=== PATIENT | female | born 1945 | race Caucasian/White ===

== ENCOUNTER 2025-01-03 15:05 | Emergency (ER) | payer MEDICARE, SELFPAY ==
--- OUTSIDE RECORDS SUMMARY | 2025-01-03 15:13 | XMS_ITS | Clinical Summary ---
Author Organization [facility] Address [address] [place] [address] Care Team Providers Care Rerecording Mixer Name Role Phone Royal Ocasio DO Primary Care Provider [phone] Allergies Active Allergy Reactions Criticality Noted Date Comments Acetaminophen-Codeine Vomiting 11/29/2015 Meperidine Diarrhea,Nausea and Vomiting 009 Medications losartan 100 MG tabletIndications :bp Take 1 tablet (100 mg total) by mouth daily. 90 tablet 03/24/20 19 Active busPIRone 5 MG tabletIndications :Anxiety [The details of the medication are not available because there are pending changes by a home health clinician.] 180 tablet 03/24/20 19 Active Additional Information Patient not taking.Reason: Roland Houston, Reported on 05/25/2024 SERTRALINE 100 MG tabletIndications :mood TAKE 1 TABLET BY MOUTH DAILY 90 tablet 05/12/20 19 Active SIMVASTATIN 10 MG tabletIndications :cholesterol TAKE 1 TABLET BY MOUTH DAILY 90 tablet 05/12/20 19 Active magnesium oxide 400 MG tabletIndications :Hypomagnesemia [The details of the medication are not available because there are pending changes by a home health clinician.] 30 tablet 2 09/26/19 20 Active Additional Information Patient not taking.Reason: Roland Houston, Reported on 05/26/2024 LEVOTHYROXINE 75 MCG tabletIndications :thyroid replacement TAKE 1 TABLET BY MOUTH DAILY 90 tablet 11/21/19 20 Active LANTUS SOLOSTAR 100 UNIT/ML injection (PEN)Indications: dm [The details of the medication are not available because there are pending changes by a home health clinician.] 45 mL 3 05/09/20 20 Active Additional Information Patient taking differently: INJECT SUBCUTANEOUSLY 38 UNITS DAILY., Reported on 05/26/2024 metFORMIN 1000 MG tabletIndications :Uncontrolled type 2 diabetes mellitus with hyperglycemia ([facility]) [The details of the medication are not available because there are pending changes by a home health clinician.] 180 tablet 10/19/19 21 Active Additional Information Patient not taking.Reason: Physican Directed, Reported on 05/26/2024 aspirin 81 MG chewable tabletIndications :heart Adaptimmune Chew 1 tablet (81 mg total) by mouth daily. Indications: heart health 07/26/19 22 Active metFORMIN (GLUCOPHAGE) 850 MG tabletIndications :dm Take 850 mg by mouth 2 (two) times daily with meals. Indications: dm 05/25/20 24 Active miconazole (ANTIFUNGAL) 2 % powderIndications :rash Apply 1 Application topically as needed for Itching. Indications: rash 05/26/20 24 Active sertraline (ZOLOFT) 25 MG tabletIndications :ood Take 25 mg by mouth daily. Indications: ood 06/07/20 24 Active Naproxen Sodium (ALEVE) 220 MG CapIndications:pa in Take 1 tablet by mouth 2 (two) times daily as needed (pain). Indications: pain 06/07/20 24 Active Active Problems Problem Noted Date Diagnosed Date UTI (urinary tract infection) 07/19/2021 Hyponatremia 03/25/2021 Overview (07/20/2021): Last Assessment & Plan: I will recheck SMA 7. Pyelonephritis 03/25/2021 Overview (07/20/2021): Last Assessment & Plan: This is a follow-up ER visit for pyelonephritis. She was not admitted but placed on oral antibiotics and has done well Depression 12/24/2020 Overview (07/20/2021): Last Assessment & Plan: Continue sertraline Dyslipidemia 12/24/2020 Overview (07/20/2021): Last Assessment & Plan: Cont zocor 10 mg Gait instability 12/24/2020 Overview (07/20/2021): Last Assessment & Plan: Order PT Hypothyroidism, unspecified 12/24/2020 Overview (07/20/2021): Last Assessment & Plan: tsh Free t4 Type 2 diabetes mellitus wit h hyperglycemia, with long-term current use of insulin ([facility]) 04/17/2020 Essential hypertension 04/17/2020 Hyperlipidemia, unspecified hyperlipidemia type 04/17/2020 Immunizations Immunization Administration Dates Next Due Fluzone 6 Months+ Quad (0.5 mL Prefilled Syringe) 03/24/2019 Fluzone High Dose - >Age 65 (Prefilled Syringe) 04/17/2020 Influenza (Generic) 03/28/2018, 7,04/28/2016,2014,05/01/2014 Influenza Adult (Generic) 03/28/2018,08/2016,04/28/2016,2014,05/01/2014 Pneumococcal (Pneumovax 23) 05/11/2016 Pneumococcal (Prevnar 13) 05/06/2015 Zoster (Zostavax) 70300 Unt/0.65Ml 07/26/2017 Family History Medical History Relation Comments Diabetes Father Diabetes Mother Hypertension Mother Stroke Mother Relation Status Comments Father Mother Social History Tobacco Use Types Packs/Day Years Used Date Smoking Tobacco: Never Smokeless Tobacco: Never Tobacco Cessation:Counseling Given: Not Answered Alcohol Use Standard Drinks/Week Comments No 0 (1 standard drink = 0.6 oz pur e alcohol) OASIS D0700: Social Isolation Answer Da te Recorded Frequency of experiencing loneliness or isolatio n Never 07/12/2024 OASIS A1250: Transportation Answer Date Recorded Lack of Transportation (Medical) No 07/12/2024 Lack of Transportation (Non-Medical) No 07/12/2024 Patient Unable or Declines to Respond No 07/12/2024 OASIS B1300: Health Literacy Answer Mo e Recorded Frequency of needing help to read materials from doctor or pharmacy Sometimes 07/12/2024 AUDIT-C Answer Date Recorded Frequency of Alcohol Consumption Never 06/29/2018 Average Number of Drinks Not on file 019 Frequency of Binge Drinking Not on file 02/2019 PHQ-2 Answer Date Recorded PHQ-2 Score - If the patient scores above 3, please move on to questions 3-9 0 09/09/2020 Comments No Sex and Gender Information Value Date Recorded Sex Assigned at Not on file Legal Sex Female 3:14 AM CDT Gender Identity Not on file Sexual Orientation Not on file Last Filed Vital Signs Vital Sign Reading Time Taken Comments Blood Pressure 110/70 07/12/2024 12:16 PM PIECE WORK CHECKER Pulse 52 07/12/2024 12:16 PM PIECE WORK CHECKER Temperature 36.1 C (97 F) 07/12/2024 12:16 PM PIECE WORK CHECKER Respiratory Rate 18 07/12/2024 12:16 PM PIECE WORK CHECKER Oxygen Saturation 98% 06/23/2024 8:50 AM PIECE WORK CHECKER RA Inhaled Oxygen Concentration - - Weight 61.2 kg (135 lb) 11/18/2023 12:32 PM CDT Height 144.8 cm (4' 9) 11/18/2023 12:32 PM CDT Body Mass Index 29.21 11/18/2023 12:32 PM CDT Plan of Treatment Upcoming Encounters Date Type Department Care Team (Late st Contact Info) Description 05/24/2025 2:30 PM PIECE WORK CHECKER Appointment [facility] [place] [address] Spencer Alberto, DO [facility] [address] [place] [id number] Health Maintenance Due Date Last Done Comments Kidney Health Evaluation 1945 Diabetes: Retinopathy Eye Exam 1962 DTaP, Tdap and Td Vaccines (1 - Tdap) 12/18/1963 Annual Medicare Wellness Visit 2009 Dexa Scan (General) 2009 RSV Immunization or 60+ Years (1 - 1-dose 75+ series) 12/18/2019 Zoster Vaccines (3 of 3) 05/14/2021 03/19/2021, 10/2017 COVID-19 Vaccine ( season) 2024 10/04/2020, 09/06/2020 Lipid Panel 03/16/2024 03/16/2023, 06/23, 12/27/2020, Additional history exists PHQ-2 (Physician Stillaguamish) 06/21/2024 Hemoglobin A1C 07/23/2024 04/22/2024, 11/2022, 03/16/2023, Additional history exists Colorectal Cancer Screening Colonoscopy (10 Years) Discontinued 12/25/2011 Pneumococcal Vaccine: 50+ Years Completed 05/11/2016, 05/06/2015 Meningococcal B Vaccine Aged Out No l onger eligible based on patient's age to complete this topic Meningococcal Vaccine Aged Out No chantal christiano eligible based on patient's age to complete this topic RSV Immunizations Under 20 Months Aged Out No longer eligible based on patient's age to complete this topic Procedures Procedure Name Priority Date/Time Associated Diagnosis Comments LIPID PANEL Routine 07/20/2021 3:15 AM PIECE WORK CHECKER HEMOGLOBIN, GLYCOSYLATED Routine 07/20/2021 3:15 AM PIECE WORK CHECKER COLONOSCOPY GENERIC (SCAN ORDER) Routine 12/25/2011 from Last 3 Months or Most Recently Relevant to Health Maintenance Results * (ABNORMAL) HEMOGLOBIN, GLYCATED (07/20/2021 3:15 AM PIECE WORK CHECKER) HGB A1C 11.8(H) <5.7 % 07/20/2021 12:26 PM PIECE WORK CHECKER [facility] Comment: ADA GUIDELINES 2010 5.7 TO 6.4% INCREASED RISK OF DIABETES > OR = 6.5% CONSISTENT WITH DIABETES TEST[place] [address] ESTIMATED AVG GLUCOSE 292 mg/dL 07/20/2021 12:26 PM PIECE WORK CHECKER [facility] 07/20/2021 3:15 AM PIECE WORK CHECKER Caren Javier MD LABORATORY Final Result [facility] [address] [place] [address], * LIPID PANEL (07/20/2021 3:15 AM PIECE WORK CHECKER) CHOLESTEROL 161 <200 MG/DL 07/20/2021 6:02 AM [facility] TRIGLYCERIDES 106 <150 MG/DL 07/20/2021 6:02 AM [facility] HDL 45 >40.0 MG/DL 07/20/2021 6:02 AM [facility] LDL (CALCULATED) 95 <100 MG/DL 07/20/19 6:02 AM [facility] NON HDL CHOLESTEROL 116 <130 MG/DL 07/20 6:02 AM [facility] Comment: NOTE: WHEN THE TRIGLYCERIDES ARE >200 mg/dL, NON HDL C IS A SECONDARY TARGET OF THERAPY, WITH A GOAL 30 mg/dL HIGHER THAN THE IDENTIFIED LDL C GOAL. CHOL/HDL RATIO 3.6 0.0 - 4.5 07/20/2021 6:02 AM [facility] VLDL CALCULATION 21 5 - 55 MG/DL 07/20/2021 6:02 AM [facility] LIPID INTERPRETATION 07/20/2021 6:02 AM [facility] Comment: NIH CONCENSUS REPORT RECOMMENDATIONS: ADULT CHILD LOW RISK: CHOLESTEROL <200 <170 TRIGLYCERIDE <150 --- HDL >=60 --- LDL <100 <110 BORDERLINE: CHOLESTEROL 200-239 170-199 TRIGLYCERIDE 150-199 --- HDL 40-59 --- LDL 100-159 110-129 HIGH RISK: CHOLESTEROL >=240 >=200 TRIGLYCERIDE >=200 --- HDL <40 --- LDL >=160 >=130 07/20/2021 3:15 AM PIECE WORK CHECKER us Caren Javier MD LABORATORY Final Result [facility] () [facility] [address] [place] [address], [place] [phone] * COLONOSCOPY (12/25/2011) us Documents Scanned SCANNING Final Result [facility] from Last 3 Months or Most Recently Relevant to Health Maintenance Insurance Advance Directives Documents on File Type Date Recorded Patient Control Inspector Expl anation Power of Program Attendant 05/26/2024 1:19 PM POA 1 06-29-23 Advance Directives and Living Will 05/26/2024 1:15 PM LIVING WILL 05-01-24 Advance Directives and Living Will 05/26/2024 1:14 PM LIVING WILL * Full Code (Latest Code Status on File) Date Activated Date Inactivated Comments 05/26/2024 12:37 PM * Full Code Date Activated Date Inactivated Comments 07/26/2021 10:49 PM 05/03/2023 9:14 PM * Full Code Date Activated Date Inactivated Comments 07/20/2021 9:09 AM 07/25/2021 5:41 PM Care Teams Rerecording Mixer Relationship Specialty Start Date End Date Royal Ocasio DO [address] [id number] PCP - General FAMILY PRACTICE 05/25/24
--- OUTSIDE RECORDS SUMMARY | 2025-01-03 15:13 | XMS_ITS | Encounter Summary ---
Author Organization [facility] Address [facility] [place] [address] Care Team Providers Care Mortgage Loan Officer Originator Name Role Phone Royal Ocasio DO Primary Care Provider [phone] Royal Ocasio DO Primary Care Provider [phone] Encounter Details Date Type Department Care Team (Late st Contact Info) Description 05/15/[address] [facility] [address] [place], [place] [id number] Spencer Alberto, [address] [facility] [address] [place] [address] Social History Tobacco Use Types Packs/Day Years Used Date Smoking Tobacco: Never Smokeless Tobacco: Never Alcohol Use Standard Drinks/Week Comments No 0 (1 standard drink = 0.6 oz pur e alcohol) AUDIT-C Answer Date Recorded Frequency of Alcohol [...] on file Sexual Orientation Not on file documented as of this encounter Functional Status * RETIRED Are you deaf or do you have serious difficulty hearing Answer Date of Assessment Author Status No 07/20/2021 11:01 AM BENEFITS ADVISOR Acti ve * RETIRED Are you blind or do you have serious difficulty seeing, even when wearing glasses? Answer Date of Assessment Author Status No 07/20/2021 11:01 AM BENEFITS ADVISOR Acti ve * Do you have serious difficulty walking or climbing stairs? Answer Date of Assessment Author Status Yes 07/20/2021 11:01 AM Milla Gomes RN Active * Do you have difficulty dressing or bathing? Answer Date of Assessment Author Status No 07/20/2021 11:01 AM Milla Gomes RN Active * Because of a physical, mental, or emotional condition, do you have difficulty doing errands alone such as visiting a doctor's office or shopping? Answer Date of Assessment Author Status No 07/20/2021 11:01 AM Milla Gomes RN Active documented as of this encounter Mental Status * Because of a physical, mental, or emotional condition, do you have serious difficulty concentrating, remembering, or making decisions? Answer Entry Date Author Status No 07/20/2021 11:01 AM Milla Gomes RN Active documented in this encounter Plan of Treatment Upcoming Encounters Date Type Department Care Team (Late st Contact Info) Description 05/24/2025 2:30 PM BENEFITS ADVISOR Appointment [facility] [place] [address] Spencer Alberto DO [address] [place] [id number] documented as of this encounter Visit Diagnoses Not on filedocumented in this encounter Care Teams Mortgage Loan Officer Originator Relationship Specialty Start Date End Date Royal Ocasio DO PCP - General FAMILY PRACTICE 12/27/20 05/24/24 Royal Ocasio DO [address] [place] [phone] PCP - General FAMILY PRACTICE 05/25/24 documented as of this encounter
--- OUTSIDE RECORDS SUMMARY | 2025-01-03 15:13 | XMS_ITS | Clinical Summary ---
Author Organization [facility] [employer] Address [address] [facility] [place] [address] Care Team Providers Care Silk Hanger Name Role Phone Royal Crouch Hair DO Primary Care Provider + Source Comments [facility] [employer],non-owned Affiliates and Associated Physician Practices is amultiple site organization consisting of ambulatory clinics and hospital sitesin [place], [place]. This disclosure is being madepursuant to the Care Everywhere program and may not contain all information available regarding this patient. Last updated 18.[facility] [employer] Allergies Active Allergy Reactions Criticality Noted Date Comments Acetaminophen-Codeine Vomiting Low 11/29/2015 Meperidine Diarrhea,Nausea and/or Vomiting Low 09/20 Social History Tobacco Use Types Packs/Day Years Used Date Smoking Tobacco: Never Smokeless Tobacco: Never Tobacco Cessation:Counseling Given: Not Answered Alcohol Use Standard Drinks/Week Comments Never 0 (1 standard drink = 0.6 oz pur e alcohol) Comments No Sex and Gender Information Value Date Recorded Sex Assigned at Not on file Legal Sex Female 12:08 PM RN AMBULATORY Gender Identity Not on file Sexual Orientation Not on file Last Filed Vital Signs Vital Sign Reading Time Taken Comments Blood Pressure 123/54 06/28/2024 8:20 PM RN AMBULATORY Pulse 67 06/28/2024 8:20 PM RN AMBULATORY Temperature 36.9 C (98.5 F) 06/28/2024 11:03 AM RN AMBULATORY Respiratory Rate 18 06/28/2024 8:20 PM RN AMBULATORY Oxygen Saturation 97% 06/28/2024 8:20 PM RN AMBULATORY Inhaled Oxygen Concentration - - Weight 108.9 kg (240 lb) 06/28/2024 11:03 AM RN AMBULATORY Height 149.9 cm (4' 11) 06/28/2024 11:03 AM RN AMBULATORY Body Mass Index 48.47 06/28/2024 11:03 AM RN AMBULATORY Plan of Treatment Health Maintenance Due Date Last Done Comments BONE DENSITY TESTING 1945 DTAP/TDAP/TD VACCINES (1 - Tdap) 12/18/1963 PNEUMOCOCCAL VACCINE 50+ (1 of 1 - PCV) 1994 ZOSTER VACCINE (1 of 2) 1994 Respiratory Syncytial Virus (RSV) Vaccine Pt: or over 60 yrs (1 - 1-dose 75+ series) 12/18/2019 COVID-19 VACCINE ( - season) 2024 04/24/2021, 10/04/2020, 09/06/2020 DEPRESSION SCREENING 06/21/2024 MEDICARE AWV CALENDAR YEAR 2024 INFLUENZA VACCINE (#1) 2025 , 06/02/2022, 04/24/2021, Additional history exists HEPATITIS B VACCINE Aged Out No longe r eligible based on patient's age to complete this topic HIB VACCINE Aged Out No longer eligi ble based on patient's age to complete this topic HPV VACCINE Aged Out No longer eligi ble based on patient's age to complete this topic MENINGOCOCCAL (Group B) VACCINE SHARED DECISION-MAKING Aged Out No longer eligible based on patient's age to complete this topic MENINGOCOCCAL GROUPS A/C/Y/W VACCINE Aged Out No longer eligible based on patient's age to complete this topic Insurance MANAGED MEDICARE ADV MANAGED MEDICARE ADV Care Teams Silk Hanger Relationship Specialty Start Date End Date Royal Crouhc DO [address] [phone] PCP - General Family Medicine 10/19/23
--- OUTSIDE RECORDS SUMMARY | 2025-01-03 15:13 | XMS_ITS | Clinical Summary ---
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 Unavailable [phone] Royal Cruoch DO Primary Care Provider + Allergies Active Allergy Reactions Criticality Noted Date Comments Acetaminophen-Codeine Vomiting Low 11/29/2015 Meperidine Diarrhea,Nausea And Vomiting Low 009 Medications docusate sodium (COLACE) 100 mg capsule Take 1 capsule (100 mg total) by mouth as needed 7 Active aspirin 81 mg enteric coated tablet Take 1 tablet (81 mg total) by mouth daily 4 Active levothyroxine (SYNTHROID) 75 mcg tablet Take 1 tablet (75 mcg total) by mouth daily 90 tablet 3 2 Active sertraline (ZOLOFT) 100 mg tablet TAKE 1 TABLET BY MOUTH DAILY 90 tablet 3 3 Active Additional Information Patient taking differently: 125 mg oral Daily, Reported on 07/28/2024 Easy Touch Alcohol Prep Pads pads, medicated 3 Active losartan (COZAAR) 100 mg tablet TAKE 1 TABLET BY MOUTH DAILY 100 tablet 1 3 Active simvastatin (ZOCOR) 10 mg tablet TAKE 1 TABLET BY MOUTH DAILY 100 tablet 1 3 Active glucagon (BAQSIMI) 3 mg/actuation spray,non-aero betsey Administer 1 spray into one nostril as needed (for severe hypoglycemia requiring the assistance of another.) 2 each 11 3 Active metFORMIN (GLUCOPHAGE) 850 mg tablet Take 1 tablet (850 mg total) by mouth daily with breakfast 90 tablet 4 5 Active pen needle, diabetic (Pen Needle) 31 gauge x 5/16 needle Use to inject insulin 1 time daily. E11.65 100 each 4 5 Active insulin glargine (LANTUS) 100 unit/mL (3 mL) pen for injectionIndic ations:Type 2 diabetes mellitus with hyperglycemia, with long-term current use of insulin (HCC) Inject 34 Units under the skin nightly E11.65 15 mL 5 025 Active insulin glargine (LANTUS) 100 unit/mL (3 mL) pen for injectionIndic ations:Type 2 diabetes mellitus with hyperglycemia, with long-term current use of insulin (HCC) Inject 34 Units under the skin nightly E11.65 45 mL 4 5 025 Discontin ued(Reord er) Active Problems Problem Noted Date Diagnosed Date Freestyle lizabeth continuous glucose monitoring de vice 07/28/2024 Assessment & Plan (07/28/2024 3:26 PM MANUFACTURER REPRESENTATIVE): Continuous glucose monitor (cgm) applied from 07/15/2024 to 07/28/2024 This device was placed for monitor and treatment of blood sugar. Interpretation of data- average glucose level- 184. In target range-51%. Hyperglycemia-49%. 0 hypoglycemia. Community acquired pneumonia 04/23/2024 Sepsis with acute renal fail ure without septic shock, due to unspecified organism, unspecified acute renal failure type 04/22/2024 Hypotension due to hypovolemia 03/26/2023 Assessment & Plan (04/06/2023 4:35 PM CDT): Resolved Assessment & Plan (03/26/2023 12:39 PM CDT): Tongue dry. Poor skin turgor. Blood sugar-497. Has not been taking insulin for some time. BP-78/30, repeated x2 remained 70 /30 EMS called. Patient transferred to [facility] ED for further evaluation. stating she just wants to lay down She was awake and alert. Moving all extremities. Her daughter was in agreement with the transfer Neck pain 03/16/2023 Assessment & Plan (03/16/2023 12:35 PM CDT): Exam unremarkable X ray c spine New issue Encounter for Medicare annual wellness exam 05/21 Assessment & Plan (06/02/2022 12:23 PM MANUFACTURER REPRESENTATIVE): Chart reviewed Recently had all teeth removed Eating soft diet ROS negative except for insomnia and feeling weak Left ankle gives out on her Primary insomnia 06/02/2022 Assessment & Plan (06/02/2022 12:24 PM MANUFACTURER REPRESENTATIVE): New issue Add lunesta 2 mg daily Chronic fatigue 06/02/2022 Assessment & Plan (06/02/2022 12:24 PM MANUFACTURER REPRESENTATIVE): Check a b 12 level Epigastric pain 06/02/2022 Assessment & Plan (06/02/2022 12:31 PM MANUFACTURER REPRESENTATIVE): Intermittent Exam nl Check a us abdomen in light of weight loss Fall 02/12/2022 Assessment & Plan (02/12/2022 2:52 PM CDT): She has experienced multiple falls. I will order a Rollator Poor dentition 02/12/2022 Assessment & Plan (02/12/2022 2:59 PM CDT): It appears she has low-grade infection of the gums of the lower jaw. She has multiple tooth abnormalities. She needs to see her dentist for definitive extraction. I am going to place her on amoxicillin 500 mg t.i.d. for 10 days. 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 Continue current treatment. Assessment & Plan (03/16/2023 12:25 PM CDT): Patient is well controlled. Continue current treatment. Assessment & Plan (06/02/2022 12:23 PM MANUFACTURER REPRESENTATIVE): Stable Assessment & Plan (02/12/2022 2:52 PM CDT): Patient is well controlled. Continue current treatment. Assessment & Plan (12/05/2021 9:52 AM CDT): Continue sertraline Mild peripheral edema 11/19/2021 Assessment & Plan (12/05/2021 9:51 AM CDT): Resolving Assessment & Plan (11/19/2021 2:01 PM CDT): No evidence of heart failure. No evidence of renal failure. No evidence of liver failure. The swelling is better when she wakes up in the morning and then reaccumulates. This is most likely vascular insufficiency. She should keep her feet elevated while she is sitting. If this does not improve we will discuss compression stockings. Full code status 02/18/2021 Assessment & Plan (02/18/2021 3:52 PM CDT): Discussed with patient approximately 20minutes End of life issues/Advanced Directives/Healthcare Surrogate. Discussed DNR. Encouraged to discuss further with family and consult health care attorney or complete [place] approved form, which I would be glad to assist them with completion. All questions answered. polst form filled out and signed Type 2 diabetes mellitus wit h hyperglycemia, with long-term current use of insulin 12/24/2020 Assessment & Plan (08/05/2023 12:35 PM MANUFACTURER REPRESENTATIVE): This is a chronic condition which is out of control not at goal of less than 7%. Personally reviewed most recent A1c - Lab Results Component Value Date HGBA1C 15.7 (H) 03/26/2023 Personally reviewed POC blood sugar- not at goal 80-180 Lab Results Component Value Date POCGLU 94 05/04/2023 Medication- continue Metformin 850mg twice daily and change Lantus 38 units daily in a.m. Monitor blood sugar continuously with sensor. Encouraged annual eye exam. Personally reviewed CMP eGFR- 98 Kidney function- normal Urine microalbumin/creatinine ratio - goal <30 treated with losartan Personally reviewed lipid panel. Not at Goal of less than 70. Continue simvastatin Assessment & Plan (05/04/2023 1:06 PM MANUFACTURER REPRESENTATIVE): This is a chronic condition which is inadequately controlled improving not at goal of less than 7%. Personally reviewed most recent A1c - Lab Results Component Value Date HGBA1C 15.7 (H) 03/26/2023 Personally reviewed POC blood sugar- not at goal 80-180 Lab Results Component Value Date POCGLU 94 05/04/2023 Medication- Continue metformin 850mg twice daily, increase lantus 38 units daily Monitor blood sugar continuously with [employer] lizabeth 3 sensor. Call blood sugars in 1 week Encouraged annual eye exam. Monofilament foot exam completed. protective senses intact Personally reviewed CMP eGFR- 98 Kidney function- normal Urine microalbumin/creatinine ratio - goal <30 treated with losartan B/P today- at goal of <140/90. continue losartan Personally reviewed lipid panel. Not at Goal of less than 70. Continue simvastatin Assessment & Plan (04/06/2023 4:35 PM CDT): Increase lantus to 35 units Assessment & Plan (03/26/2023 12:35 PM CDT): This is a chronic condition which is out of control not at goal of less than 7% due to non compliance with treatment. Reports a 30lb weight loss in 6 months. Personally reviewed most recent A1c - Lab Results Component Value Date HGBA1C 13.7 (H) 03/16/2023 Personally reviewed POC blood sugar- not at goal 80-180 Lab Results Component Value Date POCGLU 481 03/26/2023 Discussed why she is not taking medication as prescribed. States she is tired of being a burden to her family. She said she is just tired of it all. She is had diabetes for years and just does not want to do it anymore We discussed palliative care Assessment & Plan (03/16/2023 12:25 PM CDT): Not taking meds as instructed Assessment & Plan (02/03/2023 8:07 AM CDT): Suspect still poorly controlled resulting in some weight loss over the past several months. Update labs. Refer to agents' records clerk. Family inquiring about an insulin pump. Discussed this would need to be something to come from agents' records clerk and there is a lot of training involved. I don't think patient will be able to do this on her own by any means but they can discuss with endo. We will also refer her to the [facility] social work team to see if they can help with resources for home care and helping her with medication compliance and a home safety eval. Family grateful for this option. Assessment & Plan (06/02/2022 12:23 PM MANUFACTURER REPRESENTATIVE): a1c and sma 7 Assessment & Plan (02/12/2022 2:53 PM CDT): Patient is well controlled. Continue current treatment. Assessment & Plan (12/05/2021 10:00 AM CDT): Overall doing well Cont to check bs's bid Continue current dose of insulin qd Assessment & Plan (11/19/2021 1:51 PM CDT): Her last A1c had declined to 8.4. She will need a repeat A1c SMA 7 in 3 months Assessment & Plan (07/31/2021 9:35 AM MANUFACTURER REPRESENTATIVE): All medications have been resumed. She had a significant weight loss over the past 4 months of approximately 30 lb. This is most likely due to her diabetes but this will need to be monitored. Also reported to have thickening of the nails. She is diabetic I will get her set up to see Podiatry Assessment & Plan (05/26/2021 2:16 PM MANUFACTURER REPRESENTATIVE): Sees Endocrinology Note reviewed Assessment & Plan (04/01/2021 4:59 PM CDT): Diagnosed around 25 years ago On insulin since diagnosis. Control : chronic poor control on sliding scale of Humalog and having post- prandial hyperglycemia A1c 10.6% on 04/01/21 Kidney: normal GFR 84 on 03/25/21 Plan: Change Humalog inulin fixed doses before meals 6-8-12 units Decrease lantus to 40 units Qhs. Discontinue Glimepiride. Continue Metformin twice /day Monitor sugars 3 x per day and send records. Hypoglycemia symptoms and treatment reviewed with patient. Call if having low sugars. Ophthalmology exam on regular basis. Assessment & Plan (03/25/2021 2:00 PM CDT): When she was in the ER her sodium was 127 and her blood sugar was 507 approximately. Today her blood sugar is normal at 79 Assessment & Plan (02/18/2021 3:51 PM CDT): Increase Lantus to 48 units Blood sugars are running between 150 and 289. Although she has had a blood sugar down to 97. More often she is running closer to 200 that she is to the 150. Also check a A1c in approximately 6 weeks Assessment & Plan (12/24/2020 3:31 PM CDT): a1c sma 7 Refer to pot feeder Increase lantus to 42 units at hs HTN (hypertension) 12/24/2020 Assessment & Plan (05/04/2023 1:06 PM MANUFACTURER REPRESENTATIVE): This is a chronic condition which is at goal of less than 140/90 Personally reviewed labs. Continue losartan Encouraged to monitor weight and B/P at home Encouraged to take medications as prescribed. Assessment & Plan (03/16/2023 12:26 PM CDT): Patient is well controlled. Continue current treatment. Assessment & Plan (01/08/2022 9:23 AM CDT): Doing well Cont rx Assessment & Plan (12/05/2021 9:56 AM CDT): Add amlodipine 5 mg daily meds reviewed Pt is taking her meds Assessment & Plan (11/19/2021 1:52 PM CDT): Patient is well controlled. Continue current treatment. Assessment & Plan (07/31/2021 9:33 AM MANUFACTURER REPRESENTATIVE): Patient is well controlled. Continue current treatment. Assessment & Plan (12/24/2020 3:13 PM CDT): Cbc sma 7 Hyperlipidemia associated with type 2 diabetes dang garrett 12/24/2020 Assessment & Plan (08/05/2023 12:36 PM MANUFACTURER REPRESENTATIVE): This is a chronic condition which is not at goal of LDL less than 70 Continue simvastatin Encouraged to eat healthy, include fresh fruits and vegetables daily and avoid eating fried foods more than once per week. Encouraged to take medications as prescribed. Assessment & Plan (03/16/2023 12:26 PM CDT): Check a lipid profile Assessment & Plan (05/26/2021 2:17 PM MANUFACTURER REPRESENTATIVE): Cont zocor 10 mg Assessment & Plan (12/24/2020 3:14 PM CDT): Lipid and lft Acquired hypothyroidism 12/24/2020 Assessment & Plan (06/02/2022 12:24 PM MANUFACTURER REPRESENTATIVE): tsh and free t4 Assessment & Plan (07/31/2021 9:34 AM MANUFACTURER REPRESENTATIVE): She needs an up-to-date TSH and free T4 to evaluate her thyroid function. She had been off medication for some time Assessment & Plan (12/24/2020 3:16 PM CDT): tsh Free t4 Gait instability 12/24/2020 Assessment & Plan (12/24/2020 3:28 PM CDT): Order PT Resolved Problems Problem Noted Date Diagnosed Date Resolved Date Diabetic ketoacidosis withou t coma associated with type 2 diabetes mellitus 04/23/2024 07/28/2024 Dehydration 03/26/2023 04/06/2023 Diarrhea of presumed infectious origin 01/08/2022 04/06/2023 Assessment & Plan (01/08/2022 9:22 AM CDT): cipro 500 mg bid 1 week High blood pressure associated with diabetes 2 04/06/2023 Assessment & Plan (12/05/2021 10:01 AM CDT): Will add amlodipine 5 mg daily Hospital discharge follow-up 07/31/2021 11/19/2021 Assessment & Plan (07/31/2021 9:32 AM MANUFACTURER REPRESENTATIVE): Will recheck a CT scan of the abdomen and pelvis in 48 hours. Determination for continuation of IV antibiotic treatment will be made pending that result She will need a repeat CBC Chem 7 and we can get that today Abnormal CT of the abdomen 03/25/2021 0 11/19/2021 Assessment & Plan (08/07/2021 9:39 AM MANUFACTURER REPRESENTATIVE): Follow-up repeat CT of the abdomen. Follow-up renal abscess. She has completed her IV antibiotics. PICC line remains in place. I cannot 100% rule out that there remains a foci of infection. She has no symptoms of ongoing infection. We will leave the PICC line in place for the present time I will order a MRI of the right kidney to rule out ongoing infection versus cyst versus mass. Assessment & Plan (05/26/2021 2:18 PM MANUFACTURER REPRESENTATIVE): She has retropulsion. She needs a MRI of her lumbosacral spine. She needs this to be an open test I will order as an open MRI of her LS spine. There exists the possibility of a pathologic fracture. She has Flattening of T12 with retropulsion. She has a sclerotic lesion L1. This will necessitate a MRI of her T and LS spine. I will order these as an open MRI she has claustrophobia. Assessment & Plan (03/25/2021 2:00 PM CDT): She has an abnormal CT of the abdomen which shows a Flattening of T12 with retropulsion. Possibility exists of a pathological fracture. There is also sclerotic area of L1. We will get an MR of the T12 and L1 spine I will also give her Valium 5 mg a 1/2 hour prior to the MRI Pyelonephritis 03/25/2021 11/19/2021 Assessment & Plan (07/31/2021 9:37 AM MANUFACTURER REPRESENTATIVE): She remains on ceftriaxone. Will re-evaluate with a CT scan Assessment & Plan (03/25/2021 1:59 PM CDT): This is a follow-up ER visit for pyelonephritis. She was not admitted but placed on oral antibiotics and has done well Hyponatremia 03/25/2021 11/19/2021 Assessment & Plan (07/31/2021 9:35 AM MANUFACTURER REPRESENTATIVE): Recheck a sma 7 Assessment & Plan (03/25/2021 2:00 PM CDT): I will recheck SMA 7. Acute low back pain 02/18/2021 04/06/20 23 Assessment & Plan (02/18/2021 4:08 PM CDT): X ray ls spine Left hip Constipation 12/24/2020 04/06/2023 Assessment & Plan (12/24/2020 3:15 PM CDT): Refer for routine colonoscopy Depression 12/24/2020 12/05/2021 Assessment & Plan (12/24/2020 3:17 PM CDT): Continue sertraline Immunizations Immunization Administration Dates Next Due Influenza, Quadrivalent, Hig h Dose, Preservative Free, Intrr 03/31/2023,06/02/2022,04/24/2021,03/19,04/17/2020 Influenza, Quadrivalent, Spl it, Intramuscular 03/21/2022(Deferred: Patient decision) Influenza, Quadrivalent, Spl it, Preservative Free, Intramuscular 03/24/2019,03/24/2019 Influenza, Trivalent, High D ose, Split, Preservative Free, Intramuscular 04/17/2020,04/17/2020 Influenza, Unspecified 03/28/2018,2016,04/28/2016,05/06,05/01/2014 Moderna SARS-CoV-2 Monovalen t Vaccination (12+ YRS) 10/04/2020,09/06/2020 Pneumococcal Conjugate PCV 13 05/06/2015 Pneumococcal Polysaccharide PPV23 05/11/2016 ZOSTER LIVE 07/25/2017,07/25/2017 ZOSTER Recombinant 03/19/2021 Surgical History Surgery Date Site/Laterality Comments HYSTERECTOMY ROTATOR CUFF REPAIR Right CHOLECYSTECTOMY CATARACT EXTRACTION Bilateral BREAST LUMPECTOMY Medical History Medical History Date Comments Hyperlipidemia Anxiety Depression Diabetes mellitus (HCC) Hypertension Diabetic ketoacidosis withou t coma associated with type 2 diabetes mellitus (HCC) 04/23/2024 Family History Medical History Relation Name Comments SIDS Brother No Known Problems Daughter Kidney disease Father Diabetes Mother Stroke Mother Diabetes Sister 1 No Known Problems Sister 2 No Known Problems Sister 3 No Known Problems Son Relation Name Status Comments Brother Daughter Alive Father Mother Sister 1 Sister 2 Alive Sister 3 Alive Son Alive Social History Tobacco Use Types Packs/Day Years Used Date Smoking Tobacco: Never Smokeless Tobacco: Never Tobacco Cessation:Counseling Given: Not Answered [facility] Utilities Answer Date Recorded In the past 12 months has [employer], gas, oil, or water [employer] threatened to shut off services in your home? No 04/24/2024 Social Connection and Isolat ion Panel [NHANES] Answer Date Recorded In a typical week, how many times do you talk on the phone with family, friends, or neighbors? More than three times a week 04/24/2024 How often do you get togethe r with friends or relatives? More than three times a week 04/24/2024 How often do you attend [facility] or scientology services? Never 04/24/2024 Do you belong to any clubs o r organizations such as hindu groups, unions, fraternal or athletic groups, or school groups? No 04/24/2024 How often do you attend meet ings of the clubs or organizations you belong to? Never 04/24/2024 Are you , , di vorced, , never , or living with a partner? 04/24/2024 AUDIT-C Answer Date Recorded Q1: How often do you have a drink containing alc ohol? Monthly or less 04/23/2024 Q2: How many drinks containi ng alcohol do you have on a typical day when you are drinking? 1 or 2 04/23/2024 Q3: How often do you have si x or more drinks on one occasion? Never 04/23/2024 Overall Financial Resource Strain (CARDIA) Answe r Date Recorded How hard is it for you to pa y for the very basics like food, housing, medical care, and heating? Not very hard 04/24/2024 PHQ-2 Answer Date Recorded PHQ-2 Total Score (If total score is 3 or more points, staff should administer the PHQ-9) 0 06/02/2022 Hunger Vital Sign Answer Date Recorded Within the past 12 months, y ou worried that your food would run out before you got the money to buy more. Never true 04/24/20 24 Within the past 12 months, t he food you bought just didn't last and you didn't have money to get more. Never true 04/24/2024 PRAPARE - Transportation Answer Date Re corded In the past 12 months, has l ack of transportation kept you from medical appointments or from getting medications? No 09/2023 In the past 12 months, has l ack of transportation kept you from meetings, work, or from getting things needed for daily living? No 04/24/2024 Housing Stability Vital Sign Answer Mo e Recorded In the last 12 months, was t here a time when you were not able to pay the mortgage or rent on time? No 04/08/2023 In the last 12 months, how many places have you lived? 1 04/08/2023 In the last 12 months, was t here a time when you did not have a steady place to sleep or slept in a care home (including now)? No 04/08/2023 Housing Stability Vital Sign Answer Mo e Recorded In the last 12 months, was t here a time when you were not able to pay the mortgage or rent on time? No 04/24/2024 In the past 12 months, how m any times have you moved where you were living? 0 04/24/2024 At any time in the past 12 m [facility], were you homeless or living in a care home (including now)? No 04/24/2024 Personal Safety Answer Date Recorded Have you ever been in or are you currently in a harmful physical or emotional relationship or is someone making you feel afraid or unsafe? Denies 04/23/2024 Comments No Sex and Gender Information Value Date Recorded Sex Assigned at Not on file Legal Sex Female 7:04 AM MANUFACTURER REPRESENTATIVE Gender Identity Not on file Sexual Orientation Not on file Obstetrics History Last Filed Vital Signs Vital Sign Reading Time Taken Comments Blood Pressure 140/78 04/25/2024 11:31 AM MANUFACTURER REPRESENTATIVE Pulse 64 04/25/2024 11:31 AM MANUFACTURER REPRESENTATIVE Temperature 36.7 C (98.1 F) 04/25/2024 7:32 AM MANUFACTURER REPRESENTATIVE Respiratory Rate 18 04/25/2024 11:31 AM MANUFACTURER REPRESENTATIVE Oxygen Saturation 98% 04/25/2024 11:31 AM MANUFACTURER REPRESENTATIVE Inhaled Oxygen Concentration - - Weight 59.9 kg (132 lb) 07/28/2024 9:54 AM MANUFACTURER REPRESENTATIVE Height 149.9 cm (4' 11) 07/28/2024 9:54 AM MANUFACTURER REPRESENTATIVE Body Mass Index 26.66 07/28/2024 9:54 AM MANUFACTURER REPRESENTATIVE Plan of Treatment Health Maintenance Due Date Last Done Comments Osteoporosis Screening-Bone Density Scan 1945 DTaP/Tdap/Td Vaccine (1 - Tdap) 12/18/1955 Hepatitis B Screening 1962 Zoster Vaccine (3 of 3) 05/14/2021 03/19/20, 07/25/2017, 07/25/2017 Dilated Eye Exam 03/24/2022 03/24/2021 Depression Screening 06/02/2023 06/02/2022, 02/18/2021, 12/24/2020 Well Visit 65+ 06/02/2023 06/02/2022, 05/21, 02/18/2021 Albumin Creatinine Ratio, Urine 02/03/2024 Covid-19 Vaccine (2023-2 5 season) 2024 04/24/2021, 10/04/2020, 09/06/2020 Foot Exam 05/04/2024 05/04/2023, 0 11/2022, 02/12/2022, Additional history exists Hemoglobin A1C 10/20/2024 04/22/2024, 11/2022, 03/16/2023, Additional history exists Influenza Vaccine (#1) 2025 , 06/02/2022, 04/24/2021, Additional history exists Fall Risk Assessment 04/25/2025 04/25/2024, 06/02/2022, 02/18/2021, Additional history exists Lipid Panel 04/25/2025 04/25/2024, 02/20, 07/20/2021, Additional history exists eGFR 06/28/2025 06/28/2024, 01/2025, 04/25/2024, Additional history exists Pneumococcal vaccine 65+ Completed 05/11/2016, 04/21 Procedures Procedure Name Priority Date/Time Associated Diagnosis Comments COMPREHENSIVE METABOLIC PANEL Routine 06/28/2024 LIPID PANEL Routine 04/25/2024 9:32 AM MANUFACTURER REPRESENTATIVE HEMOGLOBIN A1C STAT 04/22/2024 6:49 PM CDT ALBUMIN CREATININE RATIO, URINE Routine 02/02/2023 Type 2 diabetes mellitus with hyperglycemia, with long-term current use of insulin (HCC) DIABETIC EYE EXAM Routine 03/24/2021 from Last 3 Months or Most Recently Relevant to Health Maintenance Results * Comprehensive metabolic panel (06/28/2024) SCRIBED Sodium 137 - - - mmol/L EXTERNAL LAB SCRIBED Potassium 4.0 - - - mmol/L EXTERNAL LAB SCRIBED Chloride 107 - - - mmol/L EXTERNAL LAB SCRIBED Carbon Dioxide 27 - - - mmol/L EXTERNAL LAB SCRIBED Urea Nitrogen (BUN) 25 - - - mg/dl EXTERNAL LAB SCRIBED Creatinine 0.50 - - - mg/dl EXTERNAL LAB SCRIBED Glucose 144 - - - mg/dl EXTERNAL LAB SCRIBED Calcium 9.4 - - - mg/dl EXTERNAL LAB SCRIBED Bilirubin 0.3 - - - mg/dl EXTERNAL LAB SCRIBED Plasma Protein 6.6 - - - g/dl EXTERNAL LAB SCRIBED Albumin 4.0 - - - g/dl EXTERNAL LAB SCRIBED Alkaline Phosphatase 69 - - - Units/L EXTERNAL LAB SCRIBED Alanine Transaminase (ALT) 21 - - - Units/L EXTERNAL LAB SCRIBED Aspartate Transaminase (AST) 23 - - - Units/L EXTERNAL LAB SCRIBED eGFR in >60 - - - EXTERNAL LAB SCRIBED eGFR in NonAfrican Kazakh >60 - - - EXTERNAL LAB Blood 06/28/2024 us Historical Provider LAB BLOOD ORDERABLES Brandee l Result EXTERNAL LAB * (ABNORMAL) Lipid panel (04/25/2024 9:32 AM MANUFACTURER REPRESENTATIVE) Cholesterol 152 30 - 199 mg/dL Comment: Interpretive Data Ages < or = 19 years Acceptable: <170 mg/dL Borderline high: 170-199 mg/dL High: >or= 200 mg/dL Ages > or = 20 years Desirable: <200 mg/dL Borderline high: 200-239 mg/dL High: >or= 240 mg/dL Literature References: 1. Expert Panel on Integrated Guidelines for Cardiovascular Health and Risk Reduction in Children and Adolescents. Pediatrics 2011;128:S213 2. NCEP Expert Panel. Circulation 2004;110:227 Current Interpretive Data was last revised on 2018. Testing performed by: [facility], [address] [place] [address], [place]., [address] Triglycerides 189(H) <=149 mg/dL [facility] Comment: Interpretive Data Ages < or = 9 years Acceptable: <75 mg/dL Borderline high: 75-99 mg/dL High: >or= 100 mg/dL Ages 10 to 20 years Acceptable: <90 mg/dL Borderline high: 90-129 mg/dL High: >or= 130 mg/dL Ages > or = 20 years Desirable: <150 mg/dL Borderline high: 150-199 mg/dL High: 200-499 mg/dL Very high: >or= 499 mg/dL Literature References: 1. Expert Panel on Integrated Guidelines for Cardiovascular Health and Risk Reduction in Children and Adolescents. Pediatrics 2011;128:S213 2. NCEP Expert Panel. Circulation 2004;110:227 Current Interpretive Data was last revised on 2018. Testing performed by: [address] [address] HDL 66 >=40 mg/dL [facility] Comment: Interpretive Data Ages < or = 19 years Acceptable: >45 mg/dL Borderline low: 40-45 mg/dL Low: <40 mg/dL Ages > or = 20 years Desirable: >or= 60 mg/dL Low: <40 mg/dL Literature References: 1. Expert Panel on Integrated Guidelines for Cardiovascular Health and Risk Reduction in Children and Adolescents. Pediatrics 2011;128:S213 2. NCEP Expert Panel. Circulation 2004;110:227 Current Interpretive Data was last revised on 2018. Testing performed by: [address] [address] LDL, calculated 55 <=129 mg/dL [facility] Comment: Interpretive Data Ages < or = 19 years Acceptable: <110 mg/dL Borderline high: 110-129 mg/dL High: >or= 130 mg/dL Ages > or = 20 years Optimal: <100 mg/dL Near optimal: 100-129 mg/dL Borderline high: 130-159 mg/dL High: >160 mg/dL Calculated using the Arik LDL-C estimating equation. This equation was implemented on 2024. Prior to this date LDL-C was estimated using the Friedewald equation. Literature References: 1. Expert Panel on Integrated Guidelines for Cardiovascular Health and Risk Reduction in Children and Adolescents. Pediatrics 2011;128:S213 2. NCEP Expert Panel. Circulation 2004;110:227 3. Arik Crabtree al. MADI Cardiol. 2020 October 19;5(5):540-548. doi: 10.1001/jamacardio.2020.0013 Current Interpretive Data was last revised on 2024. Testing performed by: [address] [address] Non-HDL Cholesterol 86 mg/dL [facility] Comment: Interpretive Data Ages < or = 19 years Acceptable: <120 mg/dL Borderline high: 120-144 mg/dL High: >145 mg/dL Ages > or = 20 years When triglycerides are >200 mg/dL, Non-HDL cholesterol is a secondary target of therapy with treatment goals that are 30 mg/dL greater than the LDL cholesterol target. Literature References: 1. Expert Panel on Integrated Guidelines for Cardiovascular Health and Risk Reduction in Children and Adolescents. Pediatrics 2011;128:S213 2. NCEP Expert Panel. Circulation 2004;110:227 Current Interpretive Data was last revised on 2018. Testing performed by: [address] [address] Chol/HDL ratio 2 [facility] Comment:Testing performed by : [address] [address] Blood 04/25/2024 9:32 AM MANUFACTURER REPRESENTATIVE 04/25/2024 10:08 AM MANUFACTURER REPRESENTATIVE us Jason Tejeda MD LAB BLOOD ORDERABLES Fi nal Result [facility] [address] [facility] Department [place] [address] * (ABNORMAL) Hemoglobin A1c (04/22/2024 6:49 PM CDT) Hgb A1C 9.8(H) 4.0 - 5.6 % Comment:Testing performed by : [address] [address] Estimated Average Glucose 235 mg/dL [facility] Comment: The ADA recommends reporting an estimated Average Glucose (eAG) with all Hemoglobin A1c results using the equation derived from a study of 507 normal and diabetic adults. Minority populations were underrepresented and children were not included. (Diabetes Care 31:0582-3868, 2008). The eAG is not equivalent to a fasting glucose. Testing performed by: [address] [address] Blood 04/22/2024 6:49 PM CDT 04/22/2024 6:53 PM CDT us Leo Guzman NP LAB BLOOD ORDERABLES Final Resul t [facility] [address] [facility] Department [place] [address] * Albumin Creatinine Ratio, Urine (02/02/2023) Urine us Naomi VILLAR LAB URINE ORDERABLES Final Resul t EXTERNAL LAB * (ABNORMAL) Diabetic Eye Exam (03/24/2021) 03/24/2021 Historical Provider HEALTH MAINTENANCE Final Result from Last 3 Months or Most Recently Relevant to Health Maintenance Insurance MEDICARE ADVANTAGE [facility] MEDICARE Address: [address] [address] MEDICARE ADVANTAGE [facility] MEDICARE Address: [address] [address] [place] [id number] MDCR HMO REF [facility] MEDICARE Address: [address] [place], [place] [id number] MEDICARE ADVANTAGE [facility] MEDICARE Address: [address] [place], [place] [phone] Advance Directives For more information, please contact: [phone] Documents on File Type Date Recorded Patient Creative Writing English Professor Expl anation ADVANCE DIRECTIVE 02/18/2021 * Full Code (Latest Code Status on File) Date Activated Date Inactivated Comments 04/23/2024 12:21 AM 04/25/2024 7:47 PM * Full Code Date Activated Date Inactivated Comments 03/26/2023 6:25 PM 03/31/2023 7:03 PM * Full Code Date Activated Date Inactivated Comments 03/26/2023 3:11 PM 03/26/2023 6:25 PM Care Teams Logging Rafter Laborer Relationship Specialty Start Date End Date Royal Crouch DO PCP - General Family Medicine 04/26/24 Dawna Hagan NP Nurse Practitioner Endocrinology Diabetes & Metabolism 03/31/23
--- OUTSIDE RECORDS SUMMARY | 2025-01-03 15:13 | XMS_ITS | Patient Health Record ---
Author Organization [facility] Address [address] [place] [address] Care Team Providers Care School Standards Coach Name Role Phone Azam Levine MD Primary Care Provider John Meza Unavailable [phone] Allergies No Known Allergies Reason For Referral No Information Medications Medication SIG (Take, Route, Frequency, Duration) Notes Start Date End Date Status Lantus SoloStar 100 UNIT/ML Subcutaneous; Duration: 90 Days Active Losartan Potassium 100 MG TAKE 1 TABLET BY MOUTH EVERY DAY Oral; Duration: 90 Days Not-Taking Losartan Potassium 100 MG TAKE 1 TABLET BY MOUTH EVERY DAY Oral; Duration: 90 Days Active Losartan Potassium 100 MG TAKE 1 TABLET BY MOUTH EVERY DAY Oral; Duration: 90 Days Active Sertraline HCl 25 MG TAKE 1 TABLET BY MO UTH EVERY DAY Oral; Duration: 90 Days Active Sertraline HCl 100 MG Oral; Duration: 90 Days Active Sertraline HCl 25 MG TAKE 1 TABLET BY MO UTH EVERY DAY Oral; Duration: 90 Days Active Sertraline HCl 100 MG TAKE 1 TABLET BY M OUTH EVERY DAY Oral; Duration: 90 Days Active BD Pen Needle Short Ultrafine 31G X 8 MM USE TO INJECT INSULIN 1 TIME DAILY; Duration: 90 Days Active Losartan Potassium 100 MG TAKE 1 TABLET BY MOUTH EVERY DAY Oral; Duration: 90 Days Active Levothyroxine Sodium 75 MCG Oral; Duration: 100 Days Active Losartan Potassium 100 MG Oral; Duration : 90 Days Active Losartan Potassium 100 MG TAKE 1 TABLET BY MOUTH EVERY DAY Oral; Duration: 90 Days Not-Taking FreeStyle Ariel 3 Plus Sensor - USE DIRECTED 1 EVERY 14 DAYS; Duration: 84 Days Active Losartan Potassium 100 MG TAKE 1 TABLET BY MOUTH EVERY DAY Oral; Duration: 90 Days Not-Taking FreeStyle Ariel 3 Plus Sensor - ; Duration: 84 Days Active Losartan Potassium 100 MG TAKE 1 TABLET BY MOUTH EVERY DAY Oral; Duration: 90 Days Not-Taking Social History Tobacco Use: Social History Observation Description Date Details (start date - stop date) Never Smoker NA - NA Tobacco Control (Standard) Question Answer Notes Tobacco use: Nonsmoker Problems Problem Type SNOMED Code ICD Code Onset Dates Problem Status W/U Status Risk Notes Problem Type 2 diabetes mellitus with other diabetic neurological complication (E11.49) Active confirmed Vital Signs Weight-kg 62.6 kg 11/16/2024 Height 59 in 11/16/2024 Weight 138 lbs 11/16/2024 BMI 27.87 kg/m2 11/16/2024 Encounters Encounter Location Date Provider Diagnosis [facility] [address] [id number] 11/16/2024 John Adelita Type 2 diabetes mellitus with other diabetic neurological complication E11.49 and Tinea unguium B35.1 Assessments Encounter Date Diagnosis (ICD Code) Assessment Notes Treatment Notes Treatment Clinical Notes Section Notes 11/16/2024 Type 2 diabetes mellitus with other diabetic neurological complication (ICD-10 - E11.49) 11/16/2024 Tinea unguium (ICD-10 - B35.1) Plan Of Treatment Next Appt Details Provider Name:John Gerardo Adeliat , 01/29/2025 09:45:00 AM, [address], [place], [id number], Insurance Providers Payer Name Payer Address Payer Phone Subscriber Number Group Number Insured Name Patient Relationship to Insured Coverage Start Date Coverage End Date [facility] [address] [place], [place] [id number] Shantell Medina Self - patient is the insured Medical (General) History Medical History History ICD Code depression diabetes high blood pressure high cholesterol thyroid disorder Surgical History Surgery Date(Month/Year) gallbladder hysterectomy
--- OUTSIDE RECORDS SUMMARY | 2025-01-03 15:13 | XMS_ITS | Referral Summary ---
Author Organization [facility] Address [address] [place] [address] Care Team Providers Care Wire Photo Operator News Name Role Phone Dawna Hagan OUTDOOR POWER EQUIPMENT MECHANIC Unavailable [phone] Royal Crouch DO Primary Care Provider + Allergies Active [...] 07/28/2024 Assessment & Plan (07/28/2024 3:26 PM OPERATOR/ASSISTANT FOREMAN): Continuous glucose monitor (cgm) applied from 07/15/2024 [...] 70 /30 EMS called. Patient transferred to [facility] ED for further evaluation. stating she just wants to lay down She was awake and alert. Moving all extremities. Her daughter was in agreement with the transfer Neck pain 03/16/2023 Assessment & Plan (03/16/2023 12:35 PM CDT): Exam unremarkable X ray c spine New issue Encounter for Medicare annual wellness exam 05/21 Assessment & Plan (06/02/2022 12:23 PM OPERATOR/ASSISTANT FOREMAN): Chart reviewed Recently had all teeth removed Eating soft diet ROS negative except for insomnia and feeling weak Left ankle gives out on her Primary insomnia 06/02/2022 Assessment & Plan (06/02/2022 12:24 PM OPERATOR/ASSISTANT FOREMAN): New issue Add lunesta 2 mg daily Chronic fatigue 06/02/2022 Assessment & Plan (06/02/2022 12:24 PM OPERATOR/ASSISTANT FOREMAN): Check a b 12 level Epigastric pain 06/02/2022 Assessment & Plan (06/02/2022 12:31 PM OPERATOR/ASSISTANT FOREMAN): Intermittent Exam nl Check a us abdomen [...] treatment. Assessment & Plan (06/02/2022 12:23 PM OPERATOR/ASSISTANT FOREMAN): Stable Assessment & Plan (02/12/2022 2:52 PM [...] to discuss further with family and consult sports attorney or complete [place] approved form, which I would be glad to assist them with completion. All questions answered. polst form filled out and signed Type 2 diabetes mellitus wit h hyperglycemia, with long-term current use of insulin 12/24/2020 Assessment & Plan (08/05/2023 12:35 PM OPERATOR/ASSISTANT FOREMAN): This is a chronic condition which is [...] simvastatin Assessment & Plan (05/04/2023 1:06 PM OPERATOR/ASSISTANT FOREMAN): This is a chronic condition which is [...] units daily Monitor blood sugar continuously with Healtheo360style lizabeth 3 sensor. Call blood sugars in [...] past several months. Update labs. Refer to book mender. Family inquiring about an insulin pump. Discussed this would need to be something to come from book mender and there is a lot of training involved. I don't think patient will be able to do this on her own by any means but they can discuss with endo. We will also refer her to the [facility] social work team to see if they can help with resources for home care and helping her with medication compliance and a home safety eval. Family grateful for this option. Assessment & Plan (06/02/2022 12:23 PM OPERATOR/ASSISTANT FOREMAN): a1c and sma 7 Assessment & Plan [...] months Assessment & Plan (07/31/2021 9:35 AM OPERATOR/ASSISTANT FOREMAN): All medications have been resumed. She had a significant weight loss over the past 4 months of approximately 30 lb. This is most likely due to her diabetes but this will need to be monitored. Also reported to have thickening of the nails. She is diabetic I will get her set up to see Podiatry Assessment & Plan (05/26/2021 2:16 PM OPERATOR/ASSISTANT FOREMAN): Sees Endocrinology Note reviewed Assessment & Plan [...] PM CDT): a1c sma 7 Refer to supervisor compressed yeast Increase lantus to 42 units at hs HTN (hypertension) 12/24/2020 Assessment & Plan (05/04/2023 1:06 PM OPERATOR/ASSISTANT FOREMAN): This is a chronic condition which is [...] treatment. Assessment & Plan (07/31/2021 9:33 AM OPERATOR/ASSISTANT FOREMAN): Patient is well controlled. Continue current treatment. Assessment & Plan (12/24/2020 3:13 PM CDT): Cbc sma 7 Hyperlipidemia associated with type 2 diabetes dang garrett 12/24/2020 Assessment & Plan (08/05/2023 12:36 PM OPERATOR/ASSISTANT FOREMAN): This is a chronic condition which is not at goal of LDL less than 70 Continue simvastatin Encouraged to eat healthy, include fresh fruits and vegetables daily and avoid eating fried foods more than once per week. Encouraged to take medications as prescribed. Assessment & Plan (03/16/2023 12:26 PM CDT): Check a lipid profile Assessment & Plan (05/26/2021 2:17 PM OPERATOR/ASSISTANT FOREMAN): Cont zocor 10 mg Assessment & Plan (12/24/2020 3:14 PM CDT): Lipid and lft Acquired hypothyroidism 12/24/2020 Assessment & Plan (06/02/2022 12:24 PM OPERATOR/ASSISTANT FOREMAN): tsh and free t4 Assessment & Plan (07/31/2021 9:34 AM OPERATOR/ASSISTANT FOREMAN): She needs an up-to-date TSH and free [...] 11/19/2021 Assessment & Plan (07/31/2021 9:32 AM OPERATOR/ASSISTANT FOREMAN): Will recheck a CT scan of the abdomen and pelvis in 48 hours. Determination for continuation of IV antibiotic treatment will be made pending that result She will need a repeat CBC Chem 7 and we can get that today Abnormal CT of the abdomen 03/25/2021 0 11/19/2021 Assessment & Plan (08/07/2021 9:39 AM OPERATOR/ASSISTANT FOREMAN): Follow-up repeat CT of the abdomen. Follow-up [...] mass. Assessment & Plan (05/26/2021 2:18 PM OPERATOR/ASSISTANT FOREMAN): She has retropulsion. She needs a MRI [...] 11/19/2021 Assessment & Plan (07/31/2021 9:37 AM OPERATOR/ASSISTANT FOREMAN): She remains on ceftriaxone. Will re-evaluate with a CT scan Assessment & Plan (03/25/2021 1:59 PM CDT): This is a follow-up ER visit for pyelonephritis. She was not admitted but placed on oral antibiotics and has done well Hyponatremia 03/25/2021 11/19/2021 Assessment & Plan (07/31/2021 9:35 AM OPERATOR/ASSISTANT FOREMAN): Recheck a sma 7 Assessment & Plan [...] 05/11/2016 [facility] LIVE 07/25/2017,07/25/2017 [facility] Recombinant 03/19/2021 Social History Tobacco Use Types Packs/Day Years Used Date Smoking Tobacco: Never Smokeless Tobacco: Never Tobacco Cessation:Counseling Given: Not Answered [facility] Utilities Answer Date Recorded In the past 12 months has [place], gas, oil, or water [employer] threatened to shut off services in your [...] week 04/24/2024 How often do you attend [facility] or yarsani services? Never 04/24/2024 Do you belong to any clubs o r organizations such as nondenominational groups, unions, fraternal or athletic groups, or [...] place to sleep or slept in a nursing home (including now)? No 04/08/2023 Housing Stability [...] any time in the past 12 m [facility], were you homeless or living in a nursing home (including now)? No 04/24/2024 Personal Safety Answer Date Recorded Have you ever been in or are you currently in a harmful physical or emotional relationship or is someone making you feel afraid or unsafe? Denies 04/23/2024 Comments No Sex and Gender Information Value Date Recorded Sex Assigned at Not on file Legal Sex Female 7:04 AM OPERATOR/ASSISTANT FOREMAN Gender Identity Not on file Sexual Orientation Not on file Last Filed Vital Signs Vital Sign Reading Time Taken Comments Blood Pressure 140/78 04/25/2024 11:31 AM OPERATOR/ASSISTANT FOREMAN Pulse 64 04/25/2024 11:31 AM OPERATOR/ASSISTANT FOREMAN Temperature 36.7 C (98.1 F) 04/25/2024 7:32 AM OPERATOR/ASSISTANT FOREMAN Respiratory Rate 18 04/25/2024 11:31 AM OPERATOR/ASSISTANT FOREMAN Oxygen Saturation 98% 04/25/2024 11:31 AM OPERATOR/ASSISTANT FOREMAN Inhaled Oxygen Concentration - - Weight 59.9 kg (132 lb) 07/28/2024 9:54 AM OPERATOR/ASSISTANT FOREMAN Height 149.9 cm (4' 11) 07/28/2024 9:54 AM OPERATOR/ASSISTANT FOREMAN Body Mass Index 26.66 07/28/2024 9:54 AM OPERATOR/ASSISTANT FOREMAN Plan of Treatment Not on file Procedures Procedure Name Priority Date/Time Associated Diagnosis Comments COMPREHENSIVE METABOLIC PANEL Routine 06/28/2024 LIPID PANEL Routine 04/25/2024 9:32 AM OPERATOR/ASSISTANT FOREMAN HEMOGLOBIN A1C STAT 04/22/2024 6:49 PM CDT ALBUMIN CREATININE RATIO, URINE Routine 02/02/2023 Type 2 diabetes mellitus with hyperglycemia, with long-term current use of insulin ([facility]) DIABETIC EYE EXAM Routine 03/24/2021 from Last [...] - EXTERNAL LAB SCRIBED eGFR in NonAfrican Welsh >60 - - - EXTERNAL LAB Blood 06/28/2024 us Historical Provider LAB BLOOD ORDERABLES Brandee whiting Result EXTERNAL LAB * (ABNORMAL) Lipid panel (04/25/2024 9:32 AM OPERATOR/ASSISTANT FOREMAN) Cholesterol 152 30 - 199 mg/dL Comment: [...] last revised on 2018. Testing performed by: [facility], [address] [place] [address]., [address] Triglycerides 189(H) <=149 mg/dL [facility]AB[facility] Comment: [...] last revised on 2018. Testing performed by: [address] [address] HDL 66 >=40 mg/dL [facility] Comment: Interpretive Data Ages < [...] last revised on 2018. Testing performed by: [address] [address] LDL, calculated 55 <=129 mg/dL [facility] Comment: [...] NCEP Expert Panel. Circulation 2004;110:227 3. Arik Crbatree al. MADI Cardiol. 2020 October 19;5(5):540-548. doi: 10.1001/jamacardio.2020.0013 Current Interpretive Data was last revised on 2024. Testing performed by: [address] [address] Non-HDL Cholesterol 86 mg/dL [facility] Comment: Interpretive Data Ages < [...] last revised on 2018. Testing performed by: [address] [address] Chol/HDL ratio 2 [facility] Comment:Testing performed by : [address] [address] Blood 04/25/2024 9:32 AM OPERATOR/ASSISTANT FOREMAN 04/25/2024 10:08 AM OPERATOR/ASSISTANT FOREMAN us Jason Tejeda MD LAB BLOOD ORDERABLES Fi nal Result Performing Organization Address [facility] Co de Phone Number [facility] Department [place] [address] * (ABNORMAL) Hemoglobin A1c (04/22/2024 6:49 PM CDT) [facility] Hgb A1C 9.8(H) 4.0 - 5.6 % Comment:Testing performed by : [address] [address] Estimated Average Glucose 235 mg/dL [facility] Comment: The ADA recommends reporting an estimated Average Glucose (eAG) with all Hemoglobin A1c results using the equation derived from a study of 507 normal and diabetic adults. Minority populations were underrepresented and children were not included. (Diabetes Care 31:3897-6970, 2008). The eAG is not equivalent to a fasting glucose. Testing performed by: [address] [address] Blood 04/22/2024 6:49 PM CDT 04/22/2024 6:53 PM CDT us Leo Guzman NP LAB BLOOD ORDERABLES Final Resul t Performing Organization Address City/[facility] Co de Phone Number [facility] [address] [facility] Department [place] [address] * Albumin Creatinine Ratio, Urine (02/02/2023) Urine us Naomi VILLAR LAB URINE ORDERABLES Final Resul t Performing Organization Address City/[facility]/ZIP Co de Phone Number EXTERNAL LAB * (ABNORMAL) Diabetic Eye Exam (03/24/2021) 03/24/2021 us Historical Provider MD HEALTH MAINTENANCE Final Result from Last 3 Months or Most Recently Relevant to Health Maintenance Insurance [id number] [place] [address] [facility] MEDICARE ADVANTAGE MDCR HMO REF MEDICARE ADVANTAGE Member Subscriber Plan / Payer (Ef fective 2022-Present) Name:Shantell Medina Relation to Subscriber:Self Name:Shantell Medina Payer ID:[id number] (NAIC) Type:[facility] MEDICARE Address: [place] [id number] Advance Directives For more information, please contact: [phone] Documents on File Type Date Recorded Patient Hospice Superintendent Expl anation ADVANCE DIRECTIVE 02/18/2021 * Full Code (Latest Code Status on File) Date Activated Date Inactivated Comments 04/23/2024 12:21 AM 04/25/2024 7:47 PM * Full Code Date Activated Date Inactivated Comments 03/26/2023 6:25 PM 03/31/2023 7:03 PM * Full Code Date Activated Date Inactivated Comments 03/26/2023 3:11 PM 03/26/2023 6:25 PM Care Teams Wire Photo Operator News Relationship Specialty Start Date End Date Royal Crouch DO PCP - General Family Medicine 04/26/24 Dawna Hagan, OUTDOOR POWER EQUIPMENT MECHANIC Nurse Practitioner Endocrinology Diabetes & Metabolism 03/31/23
--- OUTSIDE RECORDS SUMMARY | 2025-01-03 15:14 | XMS_ITS | Patient Health Record ---
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 M. tuberculosis complex infection unlikely. NIL 0.01 MITOGEN-NIL >10.00 TB1-NIL 0.01 TB2-NIL 0.01 The Nil tube value reflects the background interferon gamma immune response of the patient's blood sample. This value has been subtracted from the patient's displayed TB and Mitogen results. Lower than expected results with the Mitogen tube prevent false-negative Quantiferon readings by detecting a patient with a potential immune suppressive condition and/or suboptimal pre-analytical specimen handling. The TB1 Antigen tube is coated with the M. tuberculosis-specific antigens designed to elicit responses from TB antigen primed CD4+ helper T-lymphocytes. The TB2 Antigen tube is coated with the M. tuberculosis-specific antigens designed to elicit responses from TB antigen primed CD4+ helper and CD8+ cytotoxic T-lymphocytes. For additional information, please refer to https://education.[employer].fake company 2.0/faq/DNE361 (This link is being provided for informational/ educational purposes only.) HEMOGLOBIN A1c Reviewed date:09/27/2024 03:50:28 PM Interpretation: Performing Lab:Dulce [id number] Isaías LiceaaKS[address] Rolando Huynh MD Notes/Report: 0 0 0 0 0 0 HEMOGLOBIN A1c 7.7 <5.7 % of total Hgb For someone without known diabetes, a hemoglobin A1c value of 6.5% or greater indicates that they may have diabetes and this should be confirmed with a follow-up test. For someone with known diabetes, a value <7% indicates that their diabetes is well controlled and a value greater than or equal to 7% indicates suboptimal control. A1c targets should be individualized based on duration of diabetes, age, comorbid conditions, and other considerations. Currently, no consensus exists regarding use of hemoglobin A1c for diagnosis of diabetes for children. CBC (H/H, RBC, INDICES, WBC, PLT) Reviewed date:09/27/2024 03:50:28 PM Interpretation: Performing Lab:Dulce COYNELhwbsn78573 Isaías LiceaaKS[address] Rolando Huynh MD Notes/Report: 0 0 0 0 0 0 WHITE BLOOD CELL COUNT 7.2 3.8-10.8 Thousand/ uL RED BLOOD CELL COUNT 5.21 3.80-5.10 Million/uL HEMOGLOBIN 14.0 11.7-15.5 g/dL HEMATOCRIT 43.2 35.0-45.0 % MCV 82.9 80.0-100.0 fL MCH 26.9 27.0-33.0 pg MCHC 32.4 32.0-36.0 g/dL For adults, a slight decrease in the calculated MCHC value (in the range of 30 to 32 g/dL) is most likely not clinically significant; however, it should be interpreted with caution in correlation with other red cell parameters and the patient's clinical condition. RDW 13.4 11.0-15.0 % PLATELET COUNT 185 140-400 Thousand/uL MPV 12.7 7.5-12.5 fL BASIC METABOLIC PANEL Reviewed date:09/27/2024 03:50:28 PM Interpretation: Performing Lab:[facility] [id number] [facility] CenterCyjstbkfaAA[address] Za Szymanski Notes/Report: 0 0 0 0 0 0 GLUCOSE 182 65-99 mg/dL Fasting reference interval For someone without known diabetes, a glucose value >125 mg/dL indicates that they may have diabetes and this should be confirmed with a follow-up test. UREA NITROGEN (BUN) 23 7-25 mg/dL CREATININE 0.49 0.60-1.00 mg/dL EGFR 96 > OR = 60 mL/min/1.73m2 BUN/CREATININE RATIO 47 6-22 (calc) SODIUM 139 135-146 mmol/L POTASSIUM 4.1 3.5-5.3 mmol/L CHLORIDE 103 98-110 mmol/L CARBON DIOXIDE 27 20-32 mmol/L CALCIUM 9.9 8.6-10.4 mg/dL LIPID PANEL Reviewed date:09/27/2024 03:50:28 PM Interpretation: Performing Lab:RAMÍREZ [facility] [facility] Za Szymanski Notes/Report: 0 0 0 0 0 0 CHOLESTEROL, TOTAL 173 <200 mg/dL HDL CHOLESTEROL 80 > OR = 50 mg/dL TRIGLYCERIDES 56 <150 mg/dL LDL-CHOLESTEROL 79 Reference range: <100 Desirable range <100 mg/dL for primary prevention; <70 mg/dL for patients with CHD or diabetic patients with > or = 2 CHD risk factors. LDL-C is now calculated using the Kumar-Montes De Oca calculation, which is a validated novel method providing better accuracy than the Friedewald equation in the estimation of LDL-C. Kumar SS et al. MADI. 2013;310(19): 1612-6008 (http://education.[employer].com/faq/PHR995) CHOL/HDLC RATIO 2.2 <5.0 (calc) NON HDL CHOLESTEROL 93 <130 mg/dL (calc) For patients with diabetes plus 1 major ASCVD risk factor, treating to a non-HDL-C goal of <100 mg/dL (LDL-C of <70 mg/dL) is considered a therapeutic option. Cystatin C Reviewed date:09/27/2024 03:50:27 PM Interpretation: Performing Lab:DORETHA [facility]-[id number] Daniel Melara, [id number] Rolando Huynh MD Notes/Report: 0 0 0 0 0 0 eGFR 60 > OR = 60 mL/min/1.73m2 MICROALBUMIN, RANDOM URINE ( W/CREATININE) Reviewed date:09/27/2024 03:50:28 PM Interpretation: Performing Lab:KS, [facility]-Hmouep67534 Daniel Melara, VjilqcXP[address] Rolando Carrillo Lino GARSIA Notes/Report: 0 0 0 0 0 0 CREATININE, RANDOM URINE 62 20-275 mg/dL ALBUMIN, URINE 17.1 See Note: mg/dL Reference Range: Reference Range Not established ALBUMIN/CREATININE RATIO, RANDOM URINE 276 <30 mg/g creat excretion as follows: Albuminuria Category Result (mg/g creatinine) Normal to Mildly increased <30 Moderately increased 30-299 Severely increased > OR = 300 The ADA recommends that at least two of three specimens collected within a 3-6 month period be abnormal before considering a patient to be within a diagnostic category. The ADA defines abnormalities in albumin Reason For Referral Reason Poorly controlled di abetic with onychodystrophy. [place] area. * Type: New Patient * To be seen: First Available Appt *ANTONIO: Please fax consultation note and any testing completed to [phone]. Thank you. Diagnosis 1 Onychodystrophy (L60 .3) [facility] Referring Provider First Name Azam Referring Provider Last Name Abner Referring Provider Speciality [facility] Referred Provider John Ureña Referred Provider Specialty Podiatry General Notes Allie Lopez LPN 09/25/2024 12:42:57 PM > Faxed to [phone], Allie Lopez LPN 10/03/2024 08:41:42 AM > please see if referral was received., Niharika Whitney 10/03/2024 12:21:34 PM >did not have referral so it has been refaxed Clinical Notes Dr. Ureña, , Referral Priority Routine Referral Appointment Date 11/16/2024 Reason Fracture of right fi fth metatarsal occurred in February 2024. Continuing to interfere with patient's ability to walk. * Type: New Patient * To be seen: First Available Appt *ANTONIO: Please fax consultation note and any testing completed to [phone]. Thank you. Diagnosis 1 Metatarsal fracture (S92.309A) Referral Organization [facility] Referring Provider First Name Azam Referring Provider Last Name Abner Referring Provider Speciality [facility] ramón Referred Provider Specialty [facility]opedic [facility] General Notes John MCCAINKishorilir Pinto 09/26/2024 03:12:20 PM > Referral faxed to [phone], Allie Lopez LPN 09/28/2024 10:57:51 AM > [facility] does not take pts insurance, will fax to another facility., Allie Lopez LPN 09/28/2024 11:00:46 AM > faxed to [phone], Allie Lopez LPN 10/03/2024 08:42:31 AM > please see if appt has been scheduled, Niharika Whitney 10/03/2024 09:05:05 AM >it was not received referral was refaxed Clinical Notes [facility], , Referral Priority Routine Medications Medication SIG (Take, Route, Frequency, Duration) Notes Start Date End Date Status Lantus 100 UNIT/ML 46 Units Subcutaneous every morning; Duration: 30 days Active metFORMIN HCl 850 MG 1 tablet with a federico l Orally Once a day Active Sertraline HCl 25 MG 1 tablet Orally Onc e a day; Duration: 90 days Active Low-Dose Aspirin 81 MG as directed Orally Active Losartan Potassium 100 MG 1 tablet Orally Once a day Active Simvastatin 10 MG 1 tablet Orally Once a day; Duration: 90 days Active Lantus SoloStar 100 UNIT/ML 46 Units Subcutaneous daily; Duration: 30 days EMR does not allow us to add the phrase pen injector. Please dispense 5 pen injectors with 11 refills. Dose may be further adjusted in the future. 11/06/2024 Active BD Pen Needle Short U/F 31G X 8 MM use a new needle with every injection. Dispose of properly.; Duration: 30 days 10/09/2024 Active Sertraline HCl 100 MG 1 tablet Orally Once a day; Duration: 90 days 2 be taken in conjunction with sertraline 25 mg tablet to equal a total dose of 125 mg daily Active Levothyroxine Sodium 75 MCG 1 tablet in the morning on an empty stomach Orally Once a day; Duration: 90 days Active Farxiga 10 MG 1 tablet Orally Once a day; Duration: 30 days 10/09/2024 Unknown Kerendia 20 MG 1 tablet Orally Once a day; Duration: 30 days 10/09/2024 Active FreeStyle Ariel 3 Plus Sensor - use a new sensor every 14 days; Duration: 90 days 10/09/2024 Active Immunizations Vaccine Route Administration Date Status Comme nts Non VFC Prevnar 20 IM Intramuscular 11/09/2024 Administered [place] Jaqueline DIA J 11/09/2024 03:21:39 PM CDT >Pt tolerated inj well. [facility] [id number] Social History Tobacco Use: Social History Observation Description Date Details (start date - stop date) Never Smoker NA - NA Tobacco use other than smoking: Question Answer Notes Are you an other tobacco user? No DAST-10 (2020 Edition) Question Answer Notes 1. Have you used drugs other than those required for medical reasons? No 2. Do you abuse more than one drug at a time? No 3. Are you always able to st op using drugs when you want to? Yes 4. Have you had blackouts or flashbacks as a result of drug use? No 5. Do you ever feel bad or guilty about your lyla g use? No 6. Does your spouse (or pare nts) ever complain about your involvement with drugs? No 7. Have you neglected your f amily because of your use of drugs? No 8. Have you engaged in illeg al activities in order to obtain drugs? No 9. Have you ever experienced withdrawal symptoms (felt sick) when you stopped taking drugs? No 10. Have you had medical pro blems as a result of your drug use (e.g., memory loss, hepatitis, convulsions, bleeding etc.)? No Results: 0 Interpretation of Score: No problems reported Tobacco Control (Standard) Question Answer Notes Tobacco use: Nonsmoker AUDIT-C (Standard) Question Answer Notes Did you have a drink containing alcohol in the p ast year? 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 Vital Signs Heart Rate 62 /min 11/09/2024 Temperature 97.5 degrees Fahrenheit 11/09/2024 Respiratory Rate 18 /min 11/09/2024 Blood pressure diastolic 75 mm Hg 11/09/2024 Oximetry 94 % 11/09/2024 Height-cm 149.86 cm 11/09/2024 Weight-kg 64.96 kg 11/09/2024 Height 59 in 11/09/2024 Blood pressure systolic 153 mm Hg 11/09/2024 Weight 143.2 lbs 11/09/2024 BMI 28.92 kg/m2 11/09/2024 Encounters Encounter Location Date Provider Diagnosis [address] [address] 09/25/2024 Azam Pikas BMI 27.0-27.9,adult Z68.27 ; Diabetes mellitus with multiple complications E11.69 ; Onychodystrophy L60.3 and Encounter to establish care with new doctor Z76.[address] [address] 10/09/2024 Azam Pikas Proteinuria R80.9 ; Diabetes mellitus with multiple complications E11.69 ; HTN (hypertension) I10 and BMI 27.0-27.9,adult Z68.[address] [address] 11/06/2024 Azam Pikas BMI 27.0-27.9,adult Z68.27 ; Diabetes mellitus with multiple complications E11.69 ; Screening for tuberculosis Z11.1 and HTN (hypertension) I10 [address] [address] 11/09/2024 Azam Pikas Adult BMI 28.0-28.9 kg/sq m Z68.28 ; Diabetes mellitus with multiple complications E11.69 ; HTN (hypertension) I10 ; Proteinuria R80.9 ; Advanced directives, counseling/discussion Z71.89 and Encounter for immunization Z23 [address] [address] 09/25/2024 Azam Pikas Metatarsal fracture S92.309A [address] [address] 09/28/2024 [facility] [address] [place] [address] 10/10/[address] [facility] Proteinuria R80.9 [facility] [address] [place] [address] 10/20/2024 [facility] [address] [place] [address] 11/01/2024 [facility] [address] [place] [address] 11/06/[address] [address] 11/10/[address] [address] 11/16/[address] [facility] Assessments Encounter Date Diagnosis (ICD Code) Assessment Notes Treatment Notes Treatment Clinical Notes Section Notes 09/25/2024 BMI 27.0-27.9,adult (ICD-10 - Z68.27) Body Mass Index: Care Instructions material was printed, Learning About Healthy Weight material was printed 09/25/2024 Diabetes mellitus with multiple complications (ICD-10 - E11.69) -Has previously been following with endocrinology with the results technician as well over an hour away -Today we will obtain lab work -Did diabetic foot check -Discussed the importance of regular diabetic foot checks -Patient amenable to podiatry referral -Discussed the importance of glycemic control. Discussed that patient herself must take some agency to work to treat her diabetes including taking her medications consistently using her CGM and maintaining healthy eating habits. -Continue CGM -Patient is to return in 2 weeks to review her lab work and make any necessary adjustments to her diabetes regimen 09/25/2024 Metatarsal fracture (ICD-10 - S92.309A) 10/09/2024 Proteinuria (ICD-10 - R80.9) -There is proteinuria without diminishment of EGFR. She will benefit from starting Kerendia and likely from a SGLT2 antagonist as well. 10/09/2024 Diabetes mellitus with multiple complications (ICD-10 - E11.69) -Review of her lab work from the previous visit shows the following: Lab work shows that her most recent A1c is 7.7, urine microalbumin ratio shows proteinuria with albumin creatinine ratio of 276. BMP showed hyperglycemia with a serum BGL of 182 this was likely not a fasting test. Serum creatinine is low at 0.49 which is related to her low muscle mass. Both creatinine and Cystatin C calculated eGFR's are greater than 60. Lipid panel is within reference range. CBC shows no anemia. -A1c is 7.7 but this is shortly after admission for DKA so now that she is back on a consistent regimen we may see continued downtrending at this point would recommend continuing to monitor and continuing dietary modification. Due to the proteinuria we will recommend the addition of SGLT2 antagonist and Kerendia. -Stop metformin. Start Gotyozt24 mg daily -Continue insulin glargine 34 units every morning. -Continue to use CGM 10/10/2024 Proteinuria (ICD-10 - R80.9) 11/06/2024 BMI 27.0-27.9,adult (ICD-10 - Z68.27) Body Mass Index: Care Instructions material was printed, Learning About Healthy Weight material was printed 11/06/2024 Diabetes mellitus with multiple complications (ICD-10 - E11.69) -Patient did not start Farxiga due to the co-pay -We discussed that getting her established on Medicare part D would probably be helpful. She is to talk to our community field human resources manager on Wednesday. -She has been taking metformin 850 mg once per day. We discussed that the proper dose is really 1000 mg twice daily -She has been taking insulin glargine 34 units once every morning. This is approximately 0.5 units/kg/day -Reviewed her CGM data: She is consistently above goal with no lows. - For today we will make the following changes: Increase her daily insulin dose to 0.75 units/kg/day which will equal Insulin glargine 46 units/day -We discussed that her blood sugars are above goal. We discussed that there are several ways which we could potentially get her within goal range: #1 she could uptitrate her metformin dose to 1 g twice daily and very likely she would also need a basal bolus style insulin regimen. 2. She could continue her current insulin regimen and start Farxiga or Jardiance 3. She could continue her current insulin regimen and start a GLP-1 agonist. We discussed that in many cases patients on GLP-1 agonists can either reduce their insulin need or even eliminate insulin when they get to a therapeutic dose range. We also discussed that the obstacles to options 2 and 3 are her lack of insurance coverage and the cost. -For now increase her current insulin regimen to insulin glargine 46 units/day which will be 0.75 units/kg/day. - Although we would not anticipate hypoglycemic events the daughter is to call me if hypoglycemic events occurs and we will adjust her regimen accordingly at that time. -Greater than 35 minutes spent in direct consultation with patient and daughter discussing her diabetes treatments potential options and also filling out the extensive paperwork for her assisted living community. We did not complete all of this paperwork and they will return next week to complete the paperwork. 11/09/2024 Diabetes mellitus with multiple complications (ICD-10 - E11.69) -Continue insulin glargine 46 units every evening as prescribed -We had prescribed Farxiga however she cannot afford the co-pay therefore for now continue metformin 850 mg daily 11/09/2024 Adult BMI 28.0-28.9 kg/sq m (ICD-10 - Z68.28) Body Mass Index: Care Instructions material was printed 11/09/2024 HTN (hypertension) (ICD-10 - I10) -Goal blood pressure less than 130 over less than 80-Blood pressure at goal-Continue current regimen-Continue to monitor 11/06/2024 Screening for tuberculosis (ICD-10 - Z11.1) 10/09/2024 HTN (hypertension) (ICD-10 - I10) -Goal blood pressure less than 130 over less than 80 09/25/2024 Onychodystrophy (ICD-10 - L60.3) 10/09/2024 BMI 27.0-27.9,adult (ICD-10 - Z68.27) Body Mass Index: Care Instructions material was printed, Learning About Healthy Weight material was printed 09/25/2024 Encounter to establish care with new doctor (ICD-10 - Z76.89) -Reviewed medical history-Reviewed surgical history-Reviewed medications-Review ed allergies-Refilled medication-Reviewe d family history-Reviewed social history-USPSTF recommended screenings ordered-Other lab work as ordered 11/06/2024 HTN (hypertension) (ICD-10 - I10) -Blood pressure is above goal in the office today -Goal blood pressure is less than 130 over less than 80 -For today family will check her blood pressure at home at rest. If she remains above goal then we will add hydrochlorothiazid e. -Previously we had noted that she is on the max dose of losartan and that a medication such as Farxiga would in fact contribute to blood pressure control by about 5 mm of mercury. 11/09/2024 Proteinuria (ICD-10 - R80.9) -She has a prescription for Farxiga and Karendia she is already on losartan. -She is unable to fill the Farxiga and Shahrzad Arina at this time because of insurance she is working on getting part de coverage and is applied for patient assistance for the Karendia -Repeat BMP Cystatin C and urine microalbumin in 3 months -Optimize medical management of blood pressure control-Optimize glycemic control-Avoid nephrotoxic agents-Avoid unnecessary contrast studies-Continue to monitor. 11/09/2024 Advanced directives, counseling/discussi on (ICD-10 - Z71.89) -Completed patient's assisted living intake form with her -Completed patient's advance directives/POLST form. Documentation and signing witnessed by [id number]. 11/09/2024 Encounter for immunization (ICD-10 - Z23) Plan Of Treatment Future Test Test Name Order Date Cystatin C 12/25/2024 MICROALBUMIN, RANDOM URINE (W/CREATININE ) 12/25/2024 COMPREHENSIVE METABOLIC PANEL (CMP) 12/2024 HEMOGLOBIN A1c 12/25/2024 Insurance Providers Payer Name Payer Address Payer Phone Subscriber Number Group Number Insured Name Patient Relationship to Insured Coverage Start Date Coverage End Date [facility] [address] [address] [place], [place] [id number] Carol Shantell Self - patient is the insured 5 [facility] [address] [address] [place], [place] [id number] Carol Shantell Self - patient is the insured Medical (General) History Medical History History ICD Code type II diabetes HTN (hypertension) I10 Diabetes mellitus with multiple complica tions E11.69 Proteinuria R80.9 Surgical History Surgery Date(Month/Year) cholecystectomy TOTAL HYSTERECTOMY(76057) Hospitalization History Reason Date(Month/Year) [facility]
[2025-01-03 15:19] VITALS: BP 126/40; PULSE 64; RESP 18; TEMP 36.1; O2SAT 96
--- NOTE | 2025-01-03 15:33 | ED_ITS ---
HPI - Extremity Injury (Lower) General Chief Complaint: Extremity Injury, Lower Stated Complaint: Fall / RT Leg Pain Time Seen by Provider: 01/03/25 15:33 Source: patient Mode of arrival: ambulatory Limitations: no limitations History of Present Illness HPI Narrative: 79-year-old female with a history of diabetes presented for complaint of right leg pain following a fall on 12/22. Endorses a 'knot' to the garrison with surrounding redness, swelling, and pain to the leg since the fall. Patient states she did not sustain any open wounds. She says she was walking with a Rollator when she tripped on uneven grass and landed on the leg. Says pain is worse when she lays on the right side while in bed. She has been attempting to elevate, and taking Aleve. Patient endorses swelling to both lower extremities which she says was not there prior to the fall. Denies numbness, tingling, weakness, nausea, vomiting, fevers. Related Data Home Medications ?Medication ?Instructions ?Recorded ?Confirmed ?Last Taken ?Type blood-glucose sensor (FreeStyle 01/03/25 01/03/25 Unknown History Ariel 3 Plus Sensor device) insulin glargine 100 unit/mL (3 unit subcut 01/03/25 Unknown History mL) subcutaneous pen (Lantus Solostar U-100 Insulin) levothyroxine 75 mcg tablet mcg 01/03/25 Unknown History sertraline 100 mg tablet mg 01/03/25 Unknown History simvastatin 10 mg tablet mg 01/03/25 Unknown History Allergies Allergy/AdvReac Type Severity Reaction Status Date / Time codeine AdvReac Intermediate Nausea and Verified 01/03/25 15:27 Vomiting Review of Systems 2 Review of Systems: CONSTITUTIONAL: Denies body aches, fever, chills EYES: Denies visual changes ENT: Denies rhinorrhea, congestion CARDIOVASCULAR: Denies chest pain, palpitations, or edema. RESPIRATORY: Denies cough or dyspnea. SKIN: Denies rash, itching, or wounds. MUSCULOSKELETAL: reports right leg pain. denies back pain, joint pain, or myalgia. NEUROLOGIC: Denies headache, numbness, tingling, or weakness. All systems reviewed & are unremarkable except as noted in HPI and below PMFSH Past Medical History Medical History (Updated 01/03/25 @ 16:11 by Carli Vidal, RAIL CAR WELDER) Diabetes Comments At time of signature, I have reviewed and agree with nursing past medical, surgical, social and family history unless otherwise noted. Please see nursing chart for further information. There is no relevant family history pertinent to the presenting complaint Exam 2 Narrative: GENERAL: Well-appearing, and in no acute distress. CHEST: Speaks in full sentences. No respiratory distress. HEART: Regular rate and rhythm. Normal and equal peripheral pulses. EXTREMITIES: RLE with 2+ pitting edema. LLE 1+ pitting edema. Right anterior lower leg with raised firm tender subcutaneous nodule approx 4cm diameter most c/w hematoma. Surrounding skin has mild reticular erythema, slightly warm, not circumferential. Skin is tight and tender throughout lower leg. No open wounds. No calf tenderness; neg rory's sign. RLE has normal strength and sensation, normal range of motion at knee and ankle but reports garrison pain with movement. No erythema to LLE. pulse palpable and equal bilaterally, skin warm, dry, pink. Capillary refill less than 3 seconds. walks with rollator. SKIN: Warm, dry NEURO: Alert and oriented x3. PSYCH: Normal mood and affect Extrem: Upper/lower leg/hip images: 1. area of light erythema Course Course Emergency Course: Patient is aware of diagnosis, understands and agrees to treatment plan. Anticipatory guidance given. Patient agrees to follow-up as directed and is aware of reasons to seek care at the emergency department. Portions of this record may have been created with voice recognition software Level of Care: Express Care Visit Vital Signs Vital signs: Vital Signs Temperature 97.0 F L 01/03/25 15:19 Pulse Rate 64 01/03/25 15:19 Respiratory Rate 18 01/03/25 15:19 Blood Pressure 126/40 L 01/03/25 15:19 Pulse Oximetry 96 01/03/25 15:19 Oxygen Delivery Room Air 01/03/25 15:19 Temperature 97.0 F L 01/03/25 15:19 Pulse Rate 64 01/03/25 15:19 Respiratory Rate 18 01/03/25 15:19 Blood Pressure 126/40 L 01/03/25 15:19 Pulse Oximetry 96 01/03/25 15:19 Oxygen Delivery Room Air 01/03/25 15:19 Reviewed MDM - Extremity Injury (Lower) MDM Narrative Medical decision making narrative: Discussed physical exam findings with pt and dtr. Advised xray tib/fib, however daughter appeared irritable and stated don't you think that is cellulitis. Advised to rule out bone abnormality due to the fall, however again daughter insists treatment for cellulitis. Shared decision making, pt will start abx and closely monitor the leg. Imaging deferred at this time. She will go to the ER for any worsening s/s or no improvement after starting the abx. Recommend compression stockings to BLEs as pt reports no leg swelling prior to the fall, advised notifying pcp. Advised supportive measures and signs/symptoms to go to the ER. Pt is appropriate for outpt treatment and f/u. Differential Diagnosis Differential diagnosis: Likely other (DVT, CHF, PVD, venous insufficiency, medication related, renal failure, gravitational edema, cellulitis, hematoma) Discharge Plan Discharge Clinical Impression: Pain in right leg, Bilateral leg edema Patient Disposition: Home Condition: Stable Instructions: Antibiotic Form, Cellulitis (ED), Hematoma (ED) Additional Instructions: Rest and elevate the right leg; bear weight as tolerated Apply ice 15-20 minute intervals several times a day Recommend compression socks during the day to help reduce Tylenol 1000mg every 8 hours as needed Continue to use assistive device while walking Follow up with your primary care provider in 3 days. Go to the ER for any worsening symptoms or concerns (increased redness, swelling, pain, fever etc.) Patient Language: Azerbaijani Prescriptions: New cephalexin 500 mg capsule 500 mg PO Q8H 7 Days Qty: 21 0RF No Action sertraline 100 mg tablet simvastatin 10 mg tablet levothyroxine 75 mcg tablet insulin glargine [Lantus Solostar U-100 Insulin] 100 unit/mL (3 mL) insulin pen SUBCUT (DME) FreeStyle Ariel 3 Plus Sensor Device MISCELLANEOUS Follow-up/Referrals: PHYSICIAN,BEATER ENGINEER [Primary Care Provider] - Time of Disposition: 15:58
== END 2025-01-03 15:58 | disposition home or self-care (01) ==
PROVIDERS: Emergency Provider Nurse Practitioner Family
DX: M79.661 Pain in right lower leg (principal); R60.0 Localized edema; E11.9 Type 2 diabetes mellitus without complications; Z79.4 Long term (current) use of insulin
CPT/HCPCS: 99203; G0463